=== PATIENT | female | born 1980 | race Caucasian/White ===

== ENCOUNTER 2016-09-05 13:43 | Emergency (ER) | payer OTHER ==
[2016-09-05 14:00] VITALS: TEMP 98.5; BMI 37.8
--- NOTE | 2016-09-05 14:56 | DIRPT ---
CLINICAL DATA: Chest pain with cardiac palpitations for 1 day EXAM: PORTABLE CHEST 1 VIEW COMPARISON: April 27, 2014 FINDINGS: Lungs are clear. Heart size and pulmonary vascularity are normal. No adenopathy. No pneumothorax. No bone lesions. IMPRESSION: No edema or consolidation. Electronically Signed By: Justyn Ho III, M.D. On: 09/05/2016 14:53
[2016-09-05 15:20] LABS: AUTOMATED BASOPHIL 0.4 % (0-2); AUTOMATED EOSINOPHIL 0.4 % (0-5); AUTOMATED LYMPH 9.9 % (17-44); AUTOMATED MONOCYTE 5.9 % (3-10); AUTOMATED NEUTROPHIL 83.4 % (45-76); MPV 9.6 fL (7.4-10.4); PARTIAL THROMB. TIME 23.3 SEC (22-35)
[2016-09-05] MEDS ORDERED: ASPIRIN (CHEWABLE) 81 MG TAB PO ONE ×2 (15:27)
--- NOTE | 2016-09-05 15:27 | EDPRACDOC ---
- General Information Chief Complaint: Chest Pain Stated Complaint: CHEST HEAVINESS/PALPATIONS Information Source: Patient Mode of Arrival: Car Home Medications: Home Medications Biotin 5 mg PO DAILY 02/23/13 CITALOPRAM (anti-depressant) [Celexa] 10 mg PO DAILY 02/23/13 Cranberry Conc/Ascorbic Acid [Cranberry Concentrate Softgel] 1 cap PO DAILY Insulin Lispro [Humalog] 0 units SQ .TIDWM SLID SCALE 02/23/13 Lisinopril/Hydrochlorothiazide [Lisinopril-Hctz 10-12.5 mg Tab] 1 tab PO DAILY 02/23/13 Loratadine [Claritin] 10 mg PO DAILY PRN 02/23/13 Metformin HCl 1,000 mg PO BID(ROMA) 02/23/13 Docusate Sodium [Colace] 100 mg PO DAILY 08/17/13 Omeprazole [Prilosec] 20 mg PO DAILY 08/17/13 Vitamins, Multiple [Unicap] 1 cap PO DAILY 08/17/13 Aspirin [Aspirin EC] 81 mg PO DAILY 09/05/16 Azithromycin 250 mg PO DAILY #6 tablet 09/05/16 Canagliflozin [Invokana] 100 mg PO DAILY 09/05/16 Insulin Glargine,Hum.rec.anlog [Toujeo Solostar] 150 unit SQ DAILY 09/05/16 Allergies/Adverse Reactions: Allergies Allergy/AdvReac Type Severity Reaction Status Date / Time Penicillins Allergy Rash-Genera Verified 09/05/16 14:00 lized - History of Present Illness Onset: this am HPI: C/o progressive exertional sob and weakness x 2 weeks with CP and palpitations starting this am. CP is substernal, has been constant, started at rest, does not radiate, and is described as a heaviness. Hx of cardiac cath ([place]: 2013: NEG per pt) with prior stress test 08/18/13 here which was NEG for ischemia ([facility]). This is first CP since cath. Med hx = HTN, DM, HDL, + fam hx (mom and dad had stents), -smoker. Surgical hx = 2 csections, [facility]. Has annual appt with [facility] in a month. Chest Pain Location: Reports: Substernal Pain Radiation: Reports: None Symptoms Occur: Reports: Suddenly, At Rest, With light exertion Cardiac Risk Factors: Reports: Family History, Hyperlipidemia, Hypertension, Diabetes Cardiac History of: Reports: Cardiac Cath, Stress Test PE Risk Factors: Reports: None Medications within 24 Hours: Reports: Aspirin (81 mg) Prehospital Care: Reports: None Pain Came On: Reports: Suddenly Pain Status: Present Now (12/17) Pain Description: Reports: Pressure Pain Severity: Moderate Pain Worsens With: Reports: Exertion Pain Improves With: Reports: Rest Associated Signs and Symptoms: Reports: SOB, Palpitations ED Past Medical History - History Reviewed Yes Nurses notes reviewed and agree except as marked - Patient Medical History Cardiac History: Reports: Hypertension, Hypercholesterolemia GI/ History: Reports: Urinary Tract Infection (FEQUENTLY LAST SEVERAL YRS; LAST TIME WAS YR) Psychological History: Reports: Depression, Anxiety Systemic History: Reports: Anemia, Diabetes. Denies: Cancer Surgical History: Reports: Tonsillectomy/Adnoidectomy - Family Medical History Reports: Hypertension (MOM, DAD), Diabetes (MOM, DAD, GRANDPARENTS), Cancer ( GRANDFATHER-PROSTATE AND SKIN CA), Cardiac Disorders (MOM-ND,DAD-STENTS). Denies: Stroke - Social Medical History Smoking Status: Never smoker EDM Review of Systems - Review of Systems ROS Negative Except as Marked: Yes All systems reviewed and were negative except as marked Respiratory: Shortness of Breath Cardiovascular: Chest Pain, Palpitations - Physical Exam Constitutional: No apparent distress, Alert Oriented to: Time, Person, Place Last recorded Vital Signs: Last Vital Signs Temp 98.5 F 09/05/16 13:56 Pulse 94 09/05/16 15:15 Resp 20 09/05/16 15:15 BP 129/60 09/05/16 15:15 Pulse Ox 96 09/05/16 15:15 Oxygen Pulse Oxygen Saturation 96 O2 Device Room Air Oxygen Flow Rate Fraction of Inspired Oxygen ( FIO2) - HEENT Head: Normal Eye Exam: negative: Conjunctival Injection, Scleral Icterus Oropharynx: negative: Drooling TMJ: Normal Nose: No Symptoms Reported Neck: Normal - Respiratory/Cardiovascular Respiratory: Normal - CTA Cardiovascular: Normal - GI Auscultation: Normal Palpation: Normal Tenderness: Non tender - Musculoskeletal Back: Normal Extremities: Normal - Integumentary Skin: Normal - Neurologic Mood Description: Normal Thought: Coherent Perception: Normal ED Chest Pain Exam - Respiratory/Cardiovascular Respiratory: Normal - CTA Cardiovascular/Chest: Normal Radial Pulse: Normal Pedal Pulse: Normal Edema: negative: 1+, 2+, 3+, 4+, 5, 6 Chest Palpation: Normal - Action ASA given in the ED: Yes - Results 09/05/16 14:55 09/05/16 14:55 - EKG EKG #1 EKG Time: 13:52 -: Yes EKG interpreted by me Rate: bpm: 103 Rhythm: ST ST: Nonsp - Diagnostic Imaging Chest Image interpreted by: Radiologist EXAM: PORTABLE CHEST 1 VIEW COMPARISON: April 27, 2014 FINDINGS: Lungs are clear. Heart size and pulmonary vascularity are normal. No adenopathy. No pneumothorax. No bone lesions. IMPRESSION: No edema or consolidation. Electronically Signed By: Justyn Ho III, M.D. On: 09/05/2016 14:53 Decision Time to Discharge: 18:02 - Departure Disposition: Home Condition: Stable Final Diagnosis: URI (upper respiratory infection) Qualifiers: URI type: unspecified URI Qualified Code(s): J06.9 - Acute upper respiratory infection, unspecified Instructions: Chest Pain (ED), Upper Respiratory Infection (ED) Education/Counseling Given Regarding: Diagnosis, Treatment, Prognosis, Follow Up Referrals: Yessica Harrison MD [Primary Care Provider] - One Week Prescriptions: New Azithromycin 250 mg PO DAILY #6 tablet No Action Loratadine [Claritin] 10 mg PO DAILY PRN PRN Reason: Allergy Symptoms Biotin 5 mg PO DAILY Cranberry Conc/Ascorbic Acid [Cranberry Concentrate Softgel] 1 cap PO DAILY Insulin Lispro [Humalog] 0 units SQ .TIDWM SLID SCALE Lisinopril/Hydrochlorothiazide [Lisinopril-Hctz 10-12.5 mg Tab] 1 tab PO DAILY Metformin HCl 1,000 mg PO BID(ROMA) CITALOPRAM (anti-depressant) [Celexa] 10 mg PO DAILY Docusate Sodium [Colace] 100 mg PO DAILY Vitamins, Multiple [Unicap] 1 cap PO DAILY Omeprazole [Prilosec] 20 mg PO DAILY Insulin Glargine,Hum.rec.anlog [Toujeo Solostar] 150 unit SQ DAILY Canagliflozin [Invokana] 100 mg PO DAILY Aspirin [Aspirin EC] 81 mg PO DAILY Additional Instructions: 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 Take azithromycin for upper respiratory infection. Return to ED for any new or worsening symptoms.
[2016-09-05 15:37] LABS: BLOOD UREA NITROGEN 19 MG/DL (7-17); CALCIUM 8.9 MG/DL (8.4-10.2); CALCULATED OSMOLALITY 268 MOs/Kg (270-290); CHLORIDE 102 mEq/L (98-107); GLUCOSE 130 MG/DL (70-99); SODIUM LEVEL 137 mEq/L (137-146)
[2016-09-05 18:28] VITALS: BP 117/59; PULSE 88
== END 2016-09-05 18:20 | disposition home or self-care (01) ==
LOC: ED 13:43
DX: J06.9 Acute upper respiratory infection, unspecified (principal); I10 Essential (primary) hypertension; E78.00 Pure hypercholesterolemia, unspecified; E11.9 Type 2 diabetes mellitus without complications; Z79.82 Long term (current) use of aspirin; Z79.4 Long term (current) use of insulin; Z79.899 Other long term (current) drug therapy; R06.02 Shortness of breath
CPT/HCPCS: 36415; 71010; 80053; 83880; 84484; 85025; 85610; 85730; 93005; 99284; J3490